=== PATIENT | male | born 1990 ===

== ENCOUNTER 2022-09-19 00:58 | Observation (INO) | payer BC ==
--- OUTSIDE RECORDS SUMMARY | 2022-09-19 02:10 | XMS REPORT | Continuity of Care Document ---
:1990 Author Organization [facility] t Address [address] [place] [address] Care Team Providers Name Role Phone Pcp, Patient Does Not Have A Primary Care Physician [id number] BRANDI EAGLE Attending Clinician Unavailable Brandi Eagle MD Attending Clinician Jacqueline Deluca Attending Clinician [place] Orellana Attending Clinician [place] PATRICIO Attending Clinician Unavailable Doctor Unassigned, [place] Attending Clinician Unavailable Tavia Lopez Attending Clinician ZULEIKA STACY Attending Clinician Unavailable EbZuleika Martin Attending Clinician Obisesan_adekunbi Attending Clinician Unavailable Obisesan_adekunbi Admitting Clinician Unavailable Payers Payer Name Policy Type Policy Number Effective Date Expiration Date [id number] 2018 00:00:00 [place] [id number] 2018 00:00:00 [place] Problems Condition Condition Condition Status Onset Resolution Last Treating Co mments Source Name Details Category Date Date Treatment Clinician Date COVID-19 Covid-19 Problem Active 2019-10 [place] [facility]14 [facility] No known No known Disease Unive rs active active ity of problems problems [facility] Allergies, Adverse Reactions, Alerts Allergy Allergy Status Severity Reaction(s) Onset Inactive Treating Comm ents Source Name Type Date Date Clinician NO KNOWN Drug Active Univers ALLERGIE Class ity of S [facility] Social History Social Habit Start Date Stop Date Quantity Comments Source History of Heavy tobacco University tobacco use smoker [facility] Exposure to 2022-05-27 2022-06-[address] [facility] SARS-CoV-2 00:00:00 15:27:00 [facility] (event) Branch Alcohol intake 2022-06-06 2022-06-06 Ex-drinker [facility] 00:00:00 00:00:00 (finding) [facility] Tobacco use and 2021-12-11 2021-12-11 Smokeless tobacco Un iversity of exposure 00:00:00 00:00:00 non-user [facility] Sex Assigned At [birth year] Universit y of 00:00:00 00:00:00 [facility] Smoking Status Start Date Stop Date Source Never Smoker [facility] Heavy tobacco smoker 2021-12-11 00:00:00 Univers ity [facility] Medications Ordered Filled Start Stop Current Ordering Indication Dosage Frequency Signature Comments Components Source Medication Medication Date Date Medication? Clinician (SIG) Name Name fluticasone Yes [id number] 1{spray Use 1 Univers propionate 05 } Welches in ity o f 50 00:00: each [place] mcg/actuati 00 nostril in Me dical on nasal the Branch spray morning. amoxicillin 2021- No [id number] 1{tbl} Take 1 Univers -clavulanat 06-06 tablet by it y of e 00:00: 04:59 mouth in [place] (AUGMENTIN) 00 :00 the [facility] 875-125 mg morning Branch per tablet and 1 tablet in the evening. Do all this for 7 days. predniSONE 2021- No [id number] 40mg Take 2 Univers 20 mg 06-06 tablets by ity of tablet 00:00: 04:59 mouth in [place] 00 :00 the Medical morning Branch for 5 days. meloxicam Yes [id number] 7.5mg Take 1 Univers 7.5 mg 6-10 [id number] tablet by ity of tablet 00:00: mouth [place] 00 daily. Medical Branch meloxicam Yes [id number] 7.5mg Take 1 Univers 7.5 mg 6-10 [id number] tablet by ity of tablet 00:00: mouth [place] 00 daily. Medical Branch meloxicam Yes [id number] 7.5mg Take 1 Univers 7.5 mg 6-10 [id number] tablet by ity of tablet 00:00: mouth daily. Medical Branch azithromyci Yes [id number] 500 mg day Univers n 250 mg 3-12 # 1, then ity of tablet 00:00: 250 mg days 2 to Medical 5 Branch naproxen 0 Yes [id number] 250mg Take 1 Univers 250 mg 3-12 tablet by ity of tablet 00:00: mouth 2 (two) Medical times Branch daily with meals. azithromyci Yes [id number] 500 mg day Univers n 250 mg 3-12 # 1, then ity of tablet 00:00: 250 mg days 2 to Medical 5 Branch naproxen Yes [id number] 250mg Take 1 Univers 250 mg 3-12 tablet by ity of tablet 00:00: mouth (two) Medical times Branch daily with meals. azithromyci Yes [id number] 500 mg day Univers n 250 mg 3-12 # 1, then ity of tablet 00:00: 250 mg days 2 to Medical 5 Branch naproxen Yes [id number] 250mg Take 1 Univers 250 mg 3-12 tablet by ity of tablet 00:00: mouth (two) Medical times [place] daily with meals. clindamycin clindamycin No 1capsul Q8H clindamyci [place] HCl 300 mg HCl 300 mg e(s) n HCl 300 da capsule capsule mg capsule Epi scop Take 1 Take 1 Take 1 al capsule capsule capsule Health every 8 every 8 every 8 Outrea c hours by hours by hours by h oral route oral route oral route Program for 10 for 10 for 10 days. days. days. Vital Signs Vital Name Observation Time Observation Value Comments Source Respiratory rate 2022-06-06 20:28:00 18 /min [facility] Body height 2022-06-06 20:28:00 170.2 cm [facility] Body weight 2022-06-06 20:28:00 126.554 kg [facility] BMI 2022-06-06 20:28:00 43.70 kg/m2 [facility] Oxygen saturation in 2022-06-06 20:28:00 98 /min [facility] Arterial blood by [facility] Pulse oximetry Branch Systolic blood 2022-06-06 20:28:00 140 mm[Hg] Univer sity of pressure [facility] Diastolic blood 2022-06-06 20:28:00 81 mm[Hg] Unive rsity of [facility] Heart rate 2022-06-06 20:28:00 73 /min [facility] Body temperature 2022-06-06 20:28:00 37.11 [facility] [facility] Systolic blood 2022-03-11 14:05:00 146 mm[Hg] Univer sity of [facility] Diastolic blood 2022-03-11 14:05:00 92 mm[Hg] Unive rsity of [facility] Heart rate 2022-03-11 14:05:00 62 /min [facility] Body height 2022-03-11 14:05:00 172.7 cm [facility] Body weight 2022-03-11 14:05:00 120.203 kg [facility] BMI 2022-03-11 14:05:00 40.29 kg/m2 [facility] Height 2020-10-30 00:00:00 68 [in_i] [place] [facility] BMI (Body Mass 2020-10-30 00:00:00 39.5 kg/m2 [place]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) [facility] Body Weight 2020-10-30 00:00:00 4160 [oz_av] [place] [facility] Procedures Procedure Date / Time Performed Performing Clinician Sour e REFERRAL- 2022-03-11 05:01:00 Doctor Unassigned, No Univer [facility] REQUEST/RESPONSE Name [facility] Branch Plan of Care Planned Activity Planned Date Details Comments Source Diagnostic Test Pending 2020-10-30 rapid strep group [place] [facility] 00:00:00 A, throat [code = Health Out reach rapid strep group Program A, throat] Instructions [place] [facility] Outreach Program Encounters Start End Encounter Admission Attending Care Care Encounter Source Date/Time Date/Time Type Type Clinicians Facility Department ID 2022-06-06 2022-06-06 Outpatient Aidee EAGLE [facility] [id number] Univers 15:20:00 15:41:47 BRANDI barnes [facility] 2022-06-06 2022-06-06 Urgent Slava Brandi [facility] 1..840.114 [id number] Univers 15:20:00 15:41:47 Care MaryBabita crookstany HEALTH [id number] ity of [place] 4.2.7.2.686 Chon as ALANNAH?BLEA [id number] Mn shi [facility] [address] [place] MEDICAL OFFICE [facility] 2022-03-11 2022-03-[address] [facility] 1.2.840.114 [id number] Univers 09:30:00 10:08:06 Visit [facility] [id number] it y of [place] 4.2.7.2.686 Chon as ALANNAH?BLEA [id number] Mn shi WEAVER [address] [facility] OFFICE [facility] 2022-03-11 2022-03-11 [facility]patient [facility] [id number] Univers 09:30:00 10:08:06 [place] molly [facility] 2022-03-11 2022-03-11 [facility]patient [facility] [id number] Univers 09:30:00 09:30:00 [place] molly [facility] 2022-03-11 2022-03-11 Orders Doctor SERENA [id number] Univers 00:00:00 00:00:00 Only Unassigned, ERNA [id number] ity of [place] [facility] 4.2.7.2.686 Chon as [id number] [address] 2022-02-17 2022-02-17 [facility] [id number] Univers 19:20:54 23:59:00 Encounter Tavia HEALTH 350.1.13.10 ity of [place] 4.2.7.2.686 Chon as ALANNAH?BLEA [id number] Mn shi [facility] [address] [place] MEDICAL OFFICE BUILDING 2022-02-17 2022-02-17 Outpatient R MAHNAZFlorecita [facility] [id number] Univers 20:00:00 20:02:15 [facility] 2022-02-17 2022-02-17 Urgent Tavia Platt [facility] [id number] Univers 20:00:00 20:02:15 Kai PereiravaflorecitaFormerly [facility] 350.1.13.10 [facility] 4.2.7.2.686 Chon as ALANNAH?BLEA [id number] Mn shi [facility] [address] [place] MEDICAL OFFICE [facility] 2021-12-11 2021-12-11 Outpatient R TAWANNA [facility] [id number] Univers 10:00:00 10:32:33 [facility] 2020-11-02 2020-11-02 Outpatient Obisesan_ad [facility] 113 - [place] 01:04:00 01:04:00 tamara [id number] da [facility] 2020-10-30 2020-10-30 Adekzachariah Obisesan_ad [facility] [place] [place] - [id number] [place] 00:00:00 00:00:00 tamara Tilley [place] [id number] da MEMORY CARE DIRECTOR: [address] [facility] [id number] h , Ph. Program Results This patient has no known results.
[2022-09-19] MEDS ORDERED: ONDANSETRON 4 MG/2 ML VIAL IV PRN (02:17)
[2022-09-19 02:25] VITALS: BMI 41.0
[2022-09-19] MEDS ORDERED: CEFOXITIN SODIUM 1 GM/VIAL ONE ×3 (02:34→20:01)
[2022-09-19] MEDS ORDERED: NA CHLORIDE 0.9% 50 ML ONE (02:35)
[2022-09-19] MEDS: CEFOXITIN 1 GM in NA CHLORIDE 0.9% 50 ML IVPB SCH ×3 (02:45→19:00)
[2022-09-19] MEDS: Ringers Lactate 1,000 ML IV SCH ×2 (02:45→20:14)
[2022-09-19] MEDS: MORPHINE 4 MG/ML SYR IV PRN ×2 (08:00→20:15)
[2022-09-19] MEDS ORDERED: NA CHLORIDE 0.9% 50 ML IV ONE ×2 (11:24→20:10)
[2022-09-19] MEDS ORDERED: ROCURONIUM 50 MG/5 ML VIAL IV ONE ×2 (13:38→14:28)
[2022-09-19] MEDS ORDERED: propofoL 200 MG/20 ML VIAL IV ONE (13:38)
[2022-09-19] MEDS ORDERED: MIDAZOLAM HCL 2 MG/2 ML INJ ONE (13:38)
[2022-09-19] MEDS ORDERED: FENTANYL CITR 250 MCG/5 ML ONE (13:39)
[2022-09-19] MEDS ORDERED: ONDANSETRON 4 MG/2 ML VIAL ONE (13:44)
[2022-09-19] MEDS ORDERED: LIDOCAINE 2% MPF 5 ML VIAL ONE (13:44)
[2022-09-19] MEDS ORDERED: GLYCOPYRROLATE 0.2 MG/ML SYR ONE ×2 (13:44→13:47)
[2022-09-19] MEDS ORDERED: Ringers Lactate 1,000 ML IV ONE (13:56)
[2022-09-19] MEDS ORDERED: dexAMETHasone 10 MG/ML VIAL ONE (14:00)
--- NOTE | 2022-09-19 14:01 | P.HP ---
Date of Service: 09/19/22 PC: This 31-year-old male had a work-up at another facility for right upper quadrant abdominal pain and was transferred to our facility. HPC: Patient been experiencing right upper quadrant abdominal pain, radiating into his back. These similar episodes over the last few months but this is the worst episode he has had. On work-up was found to have cholecystitis with cholelithiasis, biliary colic. He was transferred to our facility PSHx: Negative PMHx: Denies any medical problems Social Hx: No known allergies Sys R: No cough, wheeze, shortness of breath. No chest pain or palpitations. Denies any urinary complaints O/E: Awake alert comfortable at the moment HEENT: Not jaundiced Chest: Air entry equal bilaterally Abd: Mild right upper quadrant tenderness Martelle: Intact Data: Has CT scan which shows stone at the neck of the gallbladder Impression: Cholecystitis with cholelithiasis biliary colic Plan: I will taken the operating room for laparoscopic possible open cholecystectomy with a cholangiogram. The risks of this procedure have been discussed. The possibility of bleeding, infection, injury to bile ducts blood vessels and intestines has been described. The possible need for an open and or further surgeries and procedures was discussed. He understands and wants us to proceed.
--- NOTE | 2022-09-19 15:16 | P.OP ---
Preoperative diagnosis: Cholecystitis with cholelithiasis, biliary colic Postoperative diagnosis: The same Primary procedure: Laparoscopic cholecystectomy Secondary procedure: Cholangiogram Anesthesia: General Estimated blood loss: Less than 10 cc Specimen: 1 gallbladder and contents Operative Technique: The patient brought the operating room and placed supine on the table. After t he induction of adequate general endotracheal anesthesia, there the abdomen was prepped with a DuraPrep solution, and he was draped in usual aseptic manner. A subumbilical incision was made. This was brought down through the skin and subcutaneous tissue. The Visiport was now used to enter the peritoneal cavity and created pneumoperitoneum to approximately 12 mmHg. Under direct vision a 5 mm trocar was placed in the upper midline, and 2 other 5 mm trochars on the right lateral side of the abdomen. The patient was now placed in reverse Trendelenburg. The table was turned to the left. We could visualize the right upper quadrant. We could see that there were a lot of adhesions in the right upper quadrant with the omentum adherent to the inferior border of the right lobe of the liver. These adhesions were tediously taken down using blunt and sharp dissection as well as judicious use of electrocautery. The fundus of the gallbladder was finally identified. By applying traction on this and elevating it we were able to further dissect these omental adhesions off of the gallbladder surface. These were traced down towards the body and then the Zheng's pouch itself. Having to expose Zheng's pouch we were able to place a grasper on it and applying lateral traction dissect out and carefully identify both the cystic duct and artery. Having obtained the critical view, a clip was placed between the gallbladder and the cystic duct. An opening was made into the cystic duct through which we were able to pass our cholangiocatheter. Injection demonstrated good flow contrast into the duodenum, there was no evidence of any filling defects. The catheter was removed. 2 clips were placed on the distal portion of the cystic duct which was now transected. The cystic artery was identified. Clips were placed on the cystic artery which was now transected. The gallbladder then was carefully dissected free from the liver bed. High risk we found an aberrant vessel coming over to the gallbladder itself. This was again clipped and divided. The gallbladder was now fully removed from the gallbladder fossa, placed into an Endo Catch, and brought out through the umbilical trocar site. The operative site was inspected to ensure adequate hemostasis. The area was irrigated with a copious amount of a saline solution. The irrigating fluid was now aspirated from the peritoneal cavity. Attention was turned towards the umbilicus. The fascial defect was approximated using the Endo Close and an absorbable suture. At this point the trochars were removed, the pneumoperitoneum peritoneum collapsed, and the suture tied. [place] were then applied to the skin. At the end of the procedure he was in a stable condition was sent to the recovery room. Needle sponge and instrument count were correct. No drains were placed. Complications: None Transferred to: Recovery Room Condition: Good
[2022-09-19] MEDS: HYDROMORPHONE HCL 1 MG/ML INJ ONE ×10 (15:35→16:00)
--- NOTE | 2022-09-19 15:39 | RAD REPORT ---
EXAM DESCRIPTION: RADCholangiogram Oper-Xray Or09/19/2022 3:33 pm CLINICAL HISTORY: Abdominal pain FINDINGS: The examination was performed by Dr. Cooley. The cystic duct was cannulated and contrast administered. Contrast flowed into the duodenum. The biliary tree is normal caliber without a filling defect seen. Fluoroscopy time 0.3 minutes. Three fluoroscopic spot images obtained
[2022-09-19 16:05] VITALS: O2SAT 96
[2022-09-20] MEDS: MORPHINE 4 MG/ML SYR IV PRN ×4 (00:25→14:35)
[2022-09-20] MEDS ORDERED: CEFOXITIN SODIUM 1 GM/VIAL ONE (03:21)
[2022-09-20] MEDS ORDERED: NA CHLORIDE 0.9% 50 ML IV ONE (03:22)
[2022-09-20] MEDS: CEFOXITIN 1 GM in NA CHLORIDE 0.9% 50 ML IVPB SCH ×2 (03:26→11:15)
[2022-09-20] MEDS: Ringers Lactate 1,000 ML IV SCH ×2 (03:28→08:44)
[2022-09-20 12:25] VITALS: BP 136/70; TEMP 97.9
== END 2022-09-20 16:10 | disposition home or self-care (01) ==
LOC: 2ND 02:07
PROVIDERS: ADMIT Surgery; ATTEND Surgery
PROC: 0FT44ZZ Resection of Gallbladder, Percutaneous Endoscopic Approach (ICD-10-PCS; principal; 2022-09-19 13:30)
DX: K80.46 Calculus of bile duct with acute and chronic cholecystitis without obstruction (principal)
CPT/HCPCS: 88304; 74300; 94010; 47562; J2704; J2001; J2250; J3010; J1100; J1170 ×3; J7120 ×4; J0694 ×6; J2405